=== PATIENT | male | born 1940 | race Caucasian/White ===

== ENCOUNTER → 2016-07-14 | Outpatient (CLI) | payer MEDICARE, MEDICAID ==
[~2016-07-14] MED LIST: CATHETER FLUSH 10 ML SYR IV PRN; FLUT1AER IH; FLUT9.9S NS; GADOBUTROL 7.5 MMOL/7.5 ML (GADAVIST) VIAL IV ONE; GUAI120016 PO; HEParin (CENTRAL IV FLUSH) 500 UNIT/5 ML SYR ONE; HYDR-3816 PO; LANS30CA PO; MAGN250T35 PO; MULT-178 PO; POLY119P5 PO; ROFL500T4 PO; RT-ALBUINH IH; UMEC1BLS IH
--- NOTE | 2016-07-14 14:44 | Diagnostic Imaging Report ---
PROCEDURE: MR imaging of the brain with and without contrast. TECHNIQUE: Multiplanar, multisequence MR imaging of the brain was performed with and without contrast. INDICATION: Headache, cervical cancer. 7 mL of Gadovist administered intravenously. FINDINGS: There is no diffusion restriction to suggest an acute infarct or diffusion abnormality. There is minimal periventricular white matter T2 hyperintense lesions seen with no associated post contrast enhancement. This is likely related to chronic microvascular ischemic changes. No enhancing nodule to suggest metastatic disease. No hydrocephalus. No extra-axial fluid collection is seen. The central vascular flow-voids appear grossly unremarkable. The brainstem and cerebellum appear unremarkable. The pituitary gland is normal in size. There is fluid signal seen in the mastoid air cells and a fluid level in the right maxillary sinus. There is mucosal thickening in the left maxillary sinus, in the ethmoidal air cells, and in the right frontal sinus. Small mucous retention cyst in the right sphenoidal sinus is seen. IMPRESSION: 1. No acute infarct or evidence of brain metastasis. 2. Sinus disease including an air-fluid level in the right maxillary sinus. Consider possibility of acute sinusitis. Report was stat faxed to office of Dr. Germaine Murry @ 2:43 PM/sherrie. Dictated by: Dictated on workstation # [id number]
--- NOTE | 2016-07-14 15:02 | Diagnostic Imaging Report ---
MUGA scan Technique: After the intravenous administration of 28.9 mCi of technetium 99m tagged red blood cells intravenously, images are obtained over the cardiac region in left lateral, anterior and BURKINAN and CALI views. Indication: Evaluate ejection fraction. Cardiotoxic chemotherapy for lung cancer FINDINGS: Area of interest around the left ventricle is drawn and the ejection fraction is estimated based on radiotracer activity at 55%. No prior studies are available for comparison. IMPRESSION: Ejection fraction is 55%. Dictated by: Dictated on workstation # [id number]
== END ==
LOC: RAD 13:19
PROVIDERS: ATTEND Internal Medicine Hematology & Oncology
DX: Z01.810 Encounter for preprocedural cardiovascular examination (principal); C34.90 Malignant neoplasm of unspecified part of unspecified bronchus or lung
CPT/HCPCS: 70553; 78472

== ENCOUNTER 2016-07-15 10:40 | Outpatient (CLI) | payer MEDICARE, MEDICAID ==
[~2016-07-15] VITALS: Ht 175.3 cm; Wt 71.7 kg
[2016-07-15 10:52] VITALS: BP 111/60
[2016-07-15] MEDS ORDERED: GUAI120016 PO (11:12)
[2016-07-15] MEDS ORDERED: POLY119P5 PO (11:12)
[2016-07-15] MEDS ORDERED: FLUT1AER IH (11:12)
[2016-07-15] MEDS ORDERED: HYDR-3816 PO (11:12)
[2016-07-15] MEDS ORDERED: MULT-178 PO (11:12)
[2016-07-15] MEDS ORDERED: ROFL500T4 PO (11:12)
[2016-07-15] MEDS ORDERED: LANS30CA PO (11:12)
[2016-07-15] MEDS ORDERED: UMEC1BLS IH (11:12)
[2016-07-15] MEDS ORDERED: RT-ALBUINH IH (11:12)
[2016-07-15] MEDS ORDERED: MAGN250T35 PO (11:12)
[2016-07-15] MEDS ORDERED: FLUT9.9S NS (11:12)
== END 2016-07-15 11:07 | disposition home or self-care (01) ==
LOC: PREOP 10:40
PROVIDERS: ATTEND Surgery Pediatric Surgery
DX: Z01.818 Encounter for other preprocedural examination (principal); Z11.2 Encounter for screening for other bacterial diseases; C34.90 Malignant neoplasm of unspecified part of unspecified bronchus or lung
CPT/HCPCS: 87081

== ENCOUNTER 2016-07-17 08:38 | Day surgery (SDC) | payer MEDICARE, MEDICAID ==
[~2016-07-17] VITALS: Ht 175.3 cm; Wt 71.7 kg
[~2016-07-17 08:38] MED LIST changes: -CATHETER FLUSH 10 ML SYR IV PRN; -GADOBUTROL 7.5 MMOL/7.5 ML (GADAVIST) VIAL IV ONE; -HEParin (CENTRAL IV FLUSH) 500 UNIT/5 ML SYR ONE
[2016-07-17] MEDS ORDERED: LACTATED RINGERS 1,000 ML IV PRN (09:02)
[2016-07-17] MEDS ORDERED: proPOfol 200 MG/20 ML (DIPRIVAN) VIAL IV ONE (09:10)
[2016-07-17] MEDS ORDERED: MIDAZOLAM 2 MG/2 ML (VERSED) VIAL ONE (09:10)
[2016-07-17 09:15] VITALS: BP 136/68
[2016-07-17] MEDS ORDERED: CATHETER FLUSH 10 ML SYR IV PRN (09:15)
[2016-07-17] MEDS ORDERED: RT-ALBUTEROL SULF 2.5 MG/3 ML PRE-MIX VIAL INH ONE (09:15)
[2016-07-17] MEDS ORDERED: CLINDAMYCIN 600 MG/50 ML IVPB 50 ML IV ONE (09:15)
--- NOTE | 2016-07-17 09:21 | Progress Note-Pre Operative ---
Pre-Operative Progress Note H&P Reviewed The H&P was reviewed, patient examined and no changes noted. Date H&P Reviewed: Jul 17, 2016 Time H&P Reviewed: 09:20 Pre-Operative Diagnosis: metastatic small cell lung cancer ARNULFO CARIAS MD Jul 17, 2016 9:21 am
[2016-07-17] MEDS ORDERED: LIDOCAINE 1% INJ 20 ML (XYLOCAINE) VIAL ONE (09:23)
[2016-07-17] MEDS ORDERED: HEParin (CENTRAL IV FLUSH) 500 UNIT/5 ML SYR ONE (09:23)
[2016-07-17] MEDS ORDERED: LIDOCAINE/EPI 1%-1:100,000 (XYLOCAINE) 20ML ONE (09:24)
[2016-07-17] MEDS ORDERED: ONDANSETRON 4 MG/2 ML (SDV) Z0FRAN IVP PRN ×2 (09:30→11:00)
[2016-07-17] MEDS ORDERED: HYDROcodone/APAP 5 MG/325 MG (LORTAB) TAB PO ONE (09:30)
[2016-07-17] MEDS ORDERED: morphine INJ 10 MG/ML 1ML (SYR OR VIAL) IVP PRN ×2 (09:30→11:00)
[2016-07-17] MEDS ORDERED: ACETAMINOPHEN 325 MG TABLET/CAPLET (TYLENOL) PO PRN (09:30)
--- NOTE | 2016-07-17 10:46 | Progress Note-Post Operative ---
Post-Operative Progess Note Surgeon (s)/Room Service Manager (s) Surgeon ARNULFO CARIAS MD Room Service Manager: none Pre-Operative Diagnosis metastatic small cell lung cancer Post-Operative Diagnosis same Post-Op Procedure Note Date of Procedure: Jul 17, 2016 Name of Procedure Performed: placement right subclavian central venous catheter under flouroscopy. Description of the Procedure: placement right subclavian central venous catheter under flouroscopy. Findings of the Procedure . Anesthesia Type MAC with local Estimated blood loss (mL): minimal Specimen(s) collected/removed none ARNULFO CARIAS MD Jul 17, 2016 10:46 am
--- NOTE | 2016-07-17 10:53 | Discharge Inst-Surgical ---
D/C Lap Instructions-ARETHA Follow Up PRN Activity as tolerated cath may be used at any time. Regular Diet Symptoms to Report: Fever over 101 degree F, Nausea/Vomiting Infection Signs and Symptoms to report: Increased redness, Foul odor of wound, Increased drainage Bathing instructions: May shower Operative Area Clean/Dry; Keep incision clean/dry If any problems/questions: Contact your physician or go to Emergency Room ARNULFO CARIAS MD Jul 17, 2016 10:53 am
[2016-07-17 11:00] VITALS: BP 121/59
--- NOTE | 2016-07-17 11:16 | Diagnostic Imaging Report ---
Portable upright radiograph of the chest. INDICATION: Post Groshong placement. The patient has history of lung cancer although no prior chest imaging are available. FINDINGS: There is a right subclavian port placed with the tip at the mid aorta, there is a 7.6 CM right suprahilar mass seen. The left lung is clear of focal infiltrates or obvious mass but demonstrates hyperinflation and background interstitial thickening as in the right lung compatible with COPD. Heart size is normal. No effusion and no pneumothorax. IMPRESSION: Large right suprahilar mass. Dictated by: Dictated on workstation # [id number]
[2016-07-17 11:30] VITALS: BP 125/64
[2016-07-17 12:00] VITALS: BP 123/58
[2016-07-17 12:20] VITALS: BP 123/58
--- NOTE | 2016-07-17 16:53 | Diagnostic Imaging Report ---
EXAM: Intraoperative view of the chest. INDICATION: Port placement. FINDINGS: Fluoroscopic time provided is 20 seconds. Port is projecting over the SVC level with a right suprahilar mass seen. IMPRESSION: Suprahilar mass. Port seen projecting over the SVC level. Dictated by: Dictated on workstation # [id number]
--- NOTE | 2016-07-20 11:38 | OPERATIVE REPORT ---
PROCEDURE PHYSICIAN: ARNULFO CARIAS DATE OF PROCEDURE: 07/17/2016 ATTENDING PRIMARY CARE PHYSICIAN: Dr. Villalba. PREOPERATIVE DIAGNOSIS: Metastatic non-small cell lung cancer. POSTOPERATIVE DIAGNOSIS: Metastatic non-small cell lung cancer. PROCEDURE: Placement left subclavian Groshong implantable catheter under fluoroscopy. SURGEON: Dr. Carias. ANESTHESIA: Monitored anesthesia care with local. ESTIMATED BLOOD LOSS: Minimal. FINDINGS: Catheter tip at right atrial/superior vena caval junction. DISPOSITION: The patient tolerated procedure well. Mr. Mann Ken is a 75-year-old male who is referred over to us for a Groshong catheter. This gentleman reports, approximately 2 weeks ago he was seen by his primary care physician where a chest x-ray was performed, which did show shadowing of the left lung. He also has had recurrent episodes bronchitis as well as pneumonia and does have a long previous smoking history. He then underwent a CT scan, which did show enlarged lymph nodes. He was then referred to [facility] where a bronchoscopy was performed, which did show small cell lung cancer. Further evaluation with a PET scan did show positive lymph nodes as well as a lesion on along the left adrenal gland consistent with metastatic small cell lung cancer. The patient was brought to the operating room, laid supine on the table. After adequate IV pain and sedative medications and monitored anesthesia care, the neck and chest were prepped and draped in standard surgical fashion. 1% lidocaine was then used to anesthetize the overlying skin in the right subclavian region. The right subclavian vein was then cannulated withdrawing of venous blood. The guidewire was then inserted under fluoroscopy. The cannulating needle removed and a skin incision using a 15 blade. The dilator and sheath were then placed over the guidewire under fluoroscopy. The dilator removed, as well as the guidewire. The Groshong implantable catheter was then placed through the sheath until the catheter tip was at the superior vena caval/right atrial junction. The sheath was then removed. The inner wire within the catheter was then removed. The catheter cut down to size and port placed onto the catheter. The skin incision was then extended laterally using a 15 blade. The right chest subcutaneous reservoir was then created. Subcutaneous tissue was opened using electrocautery until the plane between the subcutaneous tissue and anterior pectoral fascia was identified. A pocket was then created between the sling, using blunt dissection as well as electrocautery. The port was then placed into the chest reservoir. This was then sutured to the pectoralis fascia using interrupted 3-0 Vicryl sutures. The subcutaneous tissue was then reapproximated using 3-0 Vicryl interrupted sutures. Skin was closed using 4-0 Monocryl running subcuticular suture. The wound was then cleaned and covered Dermabond. The port was accessed and covered with drain sponge followed by OpSite. The patient tolerated the procedure well. We will get postprocedure chest x-ray. Once the placement is confirmed, the catheter may be used at any time. Job ID: [id number] Dictated Date: 07/17/2016 10:53:23 Beer Merchant Date: 07/20/2016 11:28:43 / fiona
== END 2016-07-17 12:20 | disposition home or self-care (01) ==
LOC: SDC 08:38
PROVIDERS: ATTEND Surgery Pediatric Surgery
DX: C34.92 Malignant neoplasm of unspecified part of left bronchus or lung (principal); C77.1 Secondary and unspecified malignant neoplasm of intrathoracic lymph nodes; Z87.891 Personal history of nicotine dependence
CPT/HCPCS: 71010; 94640; 94760

== ENCOUNTER 2016-08-25 15:07 | Outpatient (RCR) | payer OTHER, MEDICAID ==
[2016-07-13 13:15] LABS: BASOPHILS # (AUTO) 0.2 10^3/uL (0.0-0.1); BASOPHILS % (AUTO) 1 % (0-10); EOSINOPHILS # (AUTO) 0.1 10^3/uL (0.0-0.3); EOSINOPHILS % (AUTO) 1 % (0-10); LYMPHOCYTES # (AUTO) 0.7 X 10^3 (1.0-4.0); LYMPHOCYTES % (AUTO) 4 % (12-44); MEAN CORPUSCULAR HEMOGLOBIN 28 PG (25-34); MEAN CORPUSCULAR HGB CONC 30 G/DL (32-36); MEAN CORPUSCULAR VOLUME 92 FL (80-99); MEAN PLATELET VOLUME 8.2 FL (7.4-10.4); MONOCYTES # (AUTO) 0.4 X 10^3 (0.0-1.0); MONOCYTES % (AUTO) 2 % (0-12); NEUTROPHILS # (AUTO) 16.1 X 10^3 (1.8-7.8); NEUTROPHILS % (AUTO) 92 % (42-75); PLATELET COUNT 570 10^3/uL (130-400); RED BLOOD COUNT 3.73 10^6/uL (4.35-5.85); RED CELL DISTRIBUTION WIDTH 13.9 % (10.0-14.5); WHITE BLOOD COUNT 17.5 10^3/uL (4.3-11.0)
[2016-07-13 13:53] LABS: ALANINE AMINOTRANSFERASE 12 U/L (0-55); ALBUMIN 3.4 G/DL (3.2-4.5); ANION GAP 9 MMOL/L (5-14); ASPARTATE AMINO TRANSFERASE 12 U/L (5-34); BILIRUBIN,TOTAL 0.2 MG/DL (0.1-1.0); BLOOD UREA NITROGEN 22 MG/DL (7-18); BUN/CREATININE RATIO 25; CARBON DIOXIDE 29 MMOL/L (21-32); CHLORIDE 104 MMOL/L (98-107); CREATININE SERUM 0.89 MG/DL (0.60-1.30); GFR ESTIMATED > 60; GLUCOSE 127 MG/DL (70-105); POTASSIUM 4.6 MMOL/L (3.6-5.0); SODIUM 142 MMOL/L (135-145); TOTAL PROTEIN 6.2 G/DL (6.4-8.2)
[2016-08-12 11:50] LABS: BASOPHILS # (AUTO) 0.2 10^3/uL (0.0-0.1); BASOPHILS % (AUTO) 1 % (0-10); EOSINOPHILS # (AUTO) 0.2 10^3/uL (0.0-0.3); EOSINOPHILS % (AUTO) 1 % (0-10); LYMPHOCYTES # (AUTO) 2.3 X 10^3 (1.0-4.0); LYMPHOCYTES % (AUTO) 13 % (12-44); MEAN CORPUSCULAR HEMOGLOBIN 28 PG (25-34); MEAN CORPUSCULAR HGB CONC 30 G/DL (32-36); MEAN CORPUSCULAR VOLUME 92 FL (80-99); MEAN PLATELET VOLUME 8.7 FL (7.4-10.4); MONOCYTES # (AUTO) 1.7 X 10^3 (0.0-1.0); MONOCYTES % (AUTO) 10 % (0-12); NEUTROPHILS % (AUTO) 75 % (42-75); PLATELET COUNT 485 10^3/uL (130-400); RED BLOOD COUNT 3.23 10^6/uL (4.35-5.85); RED CELL DISTRIBUTION WIDTH 16.4 % (10.0-14.5); WHITE BLOOD COUNT 17.3 10^3/uL (4.3-11.0)
[2016-08-12 12:11] LABS: ALANINE AMINOTRANSFERASE 15 U/L (0-55); ALBUMIN 3.6 G/DL (3.2-4.5); ANION GAP 7 MMOL/L (5-14); ASPARTATE AMINO TRANSFERASE 25 U/L (5-34); BILIRUBIN,TOTAL 0.3 MG/DL (0.1-1.0); BLOOD UREA NITROGEN 21 MG/DL (7-18); BUN/CREATININE RATIO 27; CALCIUM 9.2 MG/DL (8.5-10.1); CARBON DIOXIDE 30 MMOL/L (21-32); CHLORIDE 104 MMOL/L (98-107); CREATININE SERUM 0.79 MG/DL (0.60-1.30); GFR ESTIMATED > 60; GLUCOSE 101 MG/DL (70-105); LACTATE DEHYDROGENASE 519 U/L (125-220); POTASSIUM 4.5 MMOL/L (3.6-5.0); SODIUM 141 MMOL/L (135-145); TOTAL PROTEIN 6.4 G/DL (6.4-8.2)
[2016-08-19 13:16] LABS: BASOPHILS # (AUTO) 0.4 10^3/uL (0.0-0.1); BASOPHILS % (AUTO) 2 % (0-10); EOSINOPHILS # (AUTO) 0.3 10^3/uL (0.0-0.3); EOSINOPHILS % (AUTO) 1 % (0-10); LYMPHOCYTES # (AUTO) 1.9 X 10^3 (1.0-4.0); LYMPHOCYTES % (AUTO) 9 % (12-44); MEAN CORPUSCULAR HEMOGLOBIN 27 PG (25-34); MEAN CORPUSCULAR HGB CONC 30 G/DL (32-36); MEAN CORPUSCULAR VOLUME 90 FL (80-99); MEAN PLATELET VOLUME 8.4 FL (7.4-10.4); MONOCYTES # (AUTO) 1.6 X 10^3 (0.0-1.0); MONOCYTES % (AUTO) 7 % (0-12); NEUTROPHILS # (AUTO) 17.6 X 10^3 (1.8-7.8); NEUTROPHILS % (AUTO) 81 % (42-75); PLATELET COUNT 813 10^3/uL (130-400); RED BLOOD COUNT 3.12 10^6/uL (4.35-5.85); RED CELL DISTRIBUTION WIDTH 16.5 % (10.0-14.5); WHITE BLOOD COUNT 21.7 10^3/uL (4.3-11.0)
[2016-08-19 13:40] LABS: ANION GAP 12 MMOL/L (5-14); BLOOD UREA NITROGEN 31 MG/DL (7-18); BUN/CREATININE RATIO 36; CALCIUM 9.7 MG/DL (8.5-10.1); CARBON DIOXIDE 29 MMOL/L (21-32); CHLORIDE 101 MMOL/L (98-107); CREATININE SERUM 0.85 MG/DL (0.60-1.30); GFR ESTIMATED > 60; GLUCOSE 90 MG/DL (70-105); MAGNESIUM 2.2 MG/DL (1.8-2.4); POTASSIUM 4.4 MMOL/L (3.6-5.0); SODIUM 142 MMOL/L (135-145)
[~2016-08-25] VITALS: Ht 167.6 cm; Wt 68.5 kg
[~2016-08-25 15:07] MED LIST changes: +ACETAMINOPHEN 500 MG TAB (TYLENOL) CANCER CTR ONE; -ALBU18HF2 INH; -ALBU2.5V4 NEB; +CARBOPLATIN 400 MG in D5W 50 ML IV(CANCER CTR) 50 ML IV SCH; +CARBOPLATIN IV SCH; +D5W IV SCH; -DOCU-143 PO; +ETOPOSIDE 150 MG in NORMAL SALINE (CANCER CENTER) 500 ML IV SCH; +ETOPOSIDE IV SCH; -FAMO20TA5 PO; +FAMOTIDINE 20MG/2ML IV (CANCER CTR) IV SCH; -FLUT16SP22 NS; +FOSAPREPITANT 150 MG/NS 150 MG IVPB (CANCER CTR) IV PRN; -LORA0.5T PO; +LORazepam 0.5 MG (ATIVAN) TABLET CANCER CTR PO PRN; -MAGN400T6 PO; -MV-M1TAB38 PO; +NORMAL SALINE IV SCH; +NS IV 1000 ML (CANCER CTR) 1,000 ML ONE; +NS IV 500 ML (CANCER CENTER) IV SCH; -OMEP40CA36 PO; -ONDA8TAB6 PO; +ONDANSETRON MDV (CANCER CENTER 16 MG, DEXAMETHASONE PF INJ (CANCER C 12 MG in NS (IVPB)... IV SCH; +PALONOSETRON 0.25 MG, DEXAMETHASONE 10 MG/NS 50 ML IVPB IV PRN; +PALONOSETRON HCL 0.25 MG, DEXAMETHASONE PF INJ (CANCER C 12 MG in NS (IVPB) CANCER CENT... IV PRN; +PEGFILGRASTIM 6 MG/0.6 ML KIT SQ SCH; +PEGFILGRASTIM 6 MG/0.6ML NEULASTA SC SCH; -UMEC62.5 INH
[2016-08-25 15:29] LABS: BASOPHILS # (AUTO) 0.1 10^3/uL (0.0-0.1); BASOPHILS % (AUTO) 1 % (0-10); EOSINOPHILS # (AUTO) 1.4 10^3/uL (0.0-0.3); EOSINOPHILS % (AUTO) 8 % (0-10); LYMPHOCYTES # (AUTO) 1.4 X 10^3 (1.0-4.0); LYMPHOCYTES % (AUTO) 8 % (12-44); MEAN CORPUSCULAR HEMOGLOBIN 27 PG (25-34); MEAN CORPUSCULAR HGB CONC 31 G/DL (32-36); MEAN CORPUSCULAR VOLUME 89 FL (80-99); MEAN PLATELET VOLUME 8.4 FL (7.4-10.4); MONOCYTES # (AUTO) 0.7 X 10^3 (0.0-1.0); MONOCYTES % (AUTO) 4 % (0-12); NEUTROPHILS # (AUTO) 13.6 X 10^3 (1.8-7.8); NEUTROPHILS % (AUTO) 80 % (42-75); PLATELET COUNT 613 10^3/uL (130-400); RED BLOOD COUNT 3.38 10^6/uL (4.35-5.85); RED CELL DISTRIBUTION WIDTH 16.1 % (10.0-14.5); WHITE BLOOD COUNT 17.2 10^3/uL (4.3-11.0)
[2016-08-25 16:13] LABS: ALANINE AMINOTRANSFERASE 24 U/L (0-55); ALBUMIN 3.1 G/DL (3.2-4.5); ANION GAP 10 MMOL/L (5-14); ASPARTATE AMINO TRANSFERASE 23 U/L (5-34); BILIRUBIN,TOTAL 0.4 MG/DL (0.1-1.0); BLOOD UREA NITROGEN 21 MG/DL (7-18); BUN/CREATININE RATIO 28; CALCIUM 9.1 MG/DL (8.5-10.1); CARBON DIOXIDE 28 MMOL/L (21-32); CHLORIDE 100 MMOL/L (98-107); CREATININE SERUM 0.75 MG/DL (0.60-1.30); GFR ESTIMATED > 60; GLUCOSE 102 MG/DL (70-105); MAGNESIUM 1.9 MG/DL (1.8-2.4); POTASSIUM 4.8 MMOL/L (3.6-5.0); SODIUM 138 MMOL/L (135-145); TOTAL PROTEIN 6.2 G/DL (6.4-8.2)
[2016-08-27] MEDS ORDERED: ALBU2.5V4 NEB (11:58)
[2016-08-27] MEDS ORDERED: ONDA8TAB6 PO (11:58)
[2016-08-27] MEDS ORDERED: LORA0.5T PO (11:58)
[2016-08-27] MEDS ORDERED: FAMO20TA5 PO (11:58)
[2016-08-27] MEDS ORDERED: UMEC62.5 INH (11:58)
[2016-08-27] MEDS ORDERED: OMEP40CA36 PO (11:58)
[2016-08-27] MEDS ORDERED: DOCU-143 PO (11:58)
[2016-08-27] MEDS ORDERED: FLUT16SP22 NS (11:58)
[2016-08-27] MEDS ORDERED: ALBU18HF2 INH (11:58)
[2016-08-27] MEDS ORDERED: MV-M1TAB38 PO (12:06)
[2016-08-27] MEDS ORDERED: MAGN400T6 PO (12:06)
== END 2016-10-11 | disposition home or self-care (01) ==
LOC: ONC 15:07
PROVIDERS: ATTEND Internal Medicine Hematology & Oncology
DX: Z51.11 Encounter for antineoplastic chemotherapy (principal); C34.2 Malignant neoplasm of middle lobe, bronchus or lung; J44.9 Chronic obstructive pulmonary disease, unspecified; K21.9 Gastro-esophageal reflux disease without esophagitis; I10 Essential (primary) hypertension; H35.30 Unspecified macular degeneration; M48.00 Spinal stenosis, site unspecified; Z79.899 Other long term (current) drug therapy
CPT/HCPCS: 36415; 36430; 36591; 80048; 80053; 83615; 83735; 85025; 86850; 86900; 86901; 86920; 96360; 96361; 96367; 96375; 96413; 96417; 99213; 99214

== ENCOUNTER → 2016-08-25 | Outpatient (CLI) | payer MEDICARE, MEDICAID ==
[~2016-08-25] MED LIST changes: +ALBU18HF2 INH; +ALBU2.5V4 NEB; +DOCU-143 PO; +FAMO20TA5 PO; +FLUT16SP22 NS; +LORA0.5T PO; +MAGN400T6 PO; +MV-M1TAB38 PO; +OMEP40CA36 PO; +ONDA8TAB6 PO; +UMEC62.5 INH
--- NOTE | 2016-08-25 16:49 | Diagnostic Imaging Report ---
EXAMINATION: Supine view of the abdomen. INDICATION: Abdominal pain and fullness. History of small cell carcinoma. FINDINGS: There are large amounts of fecal material in the rectum and colon with slight gaseous distention of proximal colonic and small bowel loops. There are no significantly dilated small bowel loops. No definite soft tissue mass. IMPRESSION: Findings are suggestive of constipation and mild fecal impaction. Dictated by: Dictated on workstation # [id number]
== END ==
LOC: RAD 16:17
PROVIDERS: ATTEND Internal Medicine Hematology & Oncology
DX: R10.9 Unspecified abdominal pain (principal)
CPT/HCPCS: 74000

== ENCOUNTER 2016-08-27 09:23 | Inpatient (IN) | payer MEDICARE, MEDICAID ==
[2016-08-27] VITALS (12 sets, daily range): BP systolic 96–133; BP diastolic 56–87
[~2016-08-27] VITALS: Ht 172.7 cm; Wt 72.2 kg
[~2016-08-27 09:23] MED LIST changes: -ACETAMINOPHEN 500 MG TAB (TYLENOL) CANCER CTR ONE; -CARBOPLATIN 400 MG in D5W 50 ML IV(CANCER CTR) 50 ML IV SCH; -CARBOPLATIN IV SCH; -D5W IV SCH; -ETOPOSIDE 150 MG in NORMAL SALINE (CANCER CENTER) 500 ML IV SCH; -ETOPOSIDE IV SCH; -FAMOTIDINE 20MG/2ML IV (CANCER CTR) IV SCH; -FOSAPREPITANT 150 MG/NS 150 MG IVPB (CANCER CTR) IV PRN; -LORazepam 0.5 MG (ATIVAN) TABLET CANCER CTR PO PRN; -NORMAL SALINE IV SCH; -NS IV 1000 ML (CANCER CTR) 1,000 ML ONE; -NS IV 500 ML (CANCER CENTER) IV SCH; -ONDANSETRON MDV (CANCER CENTER 16 MG, DEXAMETHASONE PF INJ (CANCER C 12 MG in NS (IVPB)... IV SCH; -PALONOSETRON 0.25 MG, DEXAMETHASONE 10 MG/NS 50 ML IVPB IV PRN; -PALONOSETRON HCL 0.25 MG, DEXAMETHASONE PF INJ (CANCER C 12 MG in NS (IVPB) CANCER CENT... IV PRN; -PEGFILGRASTIM 6 MG/0.6 ML KIT SQ SCH; -PEGFILGRASTIM 6 MG/0.6ML NEULASTA SC SCH
[2016-08-27] MEDS ORDERED: ACETAMINOPHEN 500 MG TAB (TYLENOL) PO PRN (10:30)
[2016-08-27] MEDS ORDERED: IBUPROFEN TABLET 200 MG TAB PO PRN (10:30)
[2016-08-27] MEDS ORDERED: ONDANSETRON 4 MG/2 ML (SDV) Z0FRAN IVP PRN (10:30)
[2016-08-27 11:28] LABS: MEAN PLATELET VOLUME 8.5 FL (7.4-10.4); RED BLOOD COUNT 2.99 10^6/uL (4.35-5.85)
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
[2016-08-27] MEDS ORDERED: PIPERACILLIN/TAZOBACTAM 4.5 GM/NS 100 ML IV NR ×2 (11:30)
[2016-08-27] MEDS ORDERED: RT-ALBUTEROL/IPRATROPIUM 3 ML (DUONEB) VIAL INH PRN (11:30)
[2016-08-27] MEDS: NS IV 1000 ML 1,000 ML IV SCH (11:47)
[2016-08-27 11:50] LABS: ALANINE AMINOTRANSFERASE 26 U/L (0-55); ANION GAP 8 MMOL/L (5-14); ASPARTATE AMINO TRANSFERASE 25 U/L (5-34); BILIRUBIN,TOTAL 0.4 MG/DL (0.1-1.0); BLOOD UREA NITROGEN 15 MG/DL (7-18); BUN/CREATININE RATIO 22; CALCIUM 8.6 MG/DL (8.5-10.1); CARBON DIOXIDE 29 MMOL/L (21-32); CHLORIDE 102 MMOL/L (98-107); CREATININE SERUM 0.67 MG/DL (0.60-1.30); GFR ESTIMATED > 60; GLUCOSE 111 MG/DL (70-105); POTASSIUM 4.7 MMOL/L (3.6-5.0); SODIUM 139 MMOL/L (135-145); TOTAL PROTEIN 5.8 G/DL (6.4-8.2)
[2016-08-27] MEDS ORDERED: LORA0.5T PO (11:58)
[2016-08-27] MEDS ORDERED: ALBU18HF2 INH (11:58)
[2016-08-27] MEDS ORDERED: FAMO20TA5 PO (11:58)
[2016-08-27] MEDS ORDERED: OMEP40CA36 PO (11:58)
[2016-08-27] MEDS ORDERED: UMEC62.5 INH (11:58)
[2016-08-27] MEDS ORDERED: ALBU2.5V4 NEB (11:58)
[2016-08-27] MEDS ORDERED: ONDA8TAB6 PO (11:58)
[2016-08-27] MEDS ORDERED: FLUT16SP22 NS (11:58)
[2016-08-27] MEDS ORDERED: DOCU-143 PO (11:58)
[2016-08-27 12:00] LABS: ABG BASE EXCESS 4.6 MMOL/L (-2.5-2.5); ABG HCO3 29 MMOL/L (23-27); ABG OXYGEN SATURATION 95 % (94-100); ABG PCO2 49 MMHG (35-45); ABG PH 7.39 (7.37-7.43); ABG PO2 69 MMHG (79-93); ABG TCO2 30.9 MMOL/L (21.0-31.0)
[2016-08-27 12:01] LABS: ALLENS TEST YES-POS; PATIENT TEMP 97.9
[2016-08-27] MEDS ORDERED: MAGN400T6 PO (12:06)
[2016-08-27] MEDS ORDERED: MV-M1TAB38 PO (12:06)
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
[2016-08-27] MEDS: RT-ALBUTEROL/IPRATROPIUM 3 ML (DUONEB) VIAL INH SCH ×3 (14:07→21:34)
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
[2016-08-27] MEDS: HYDROcodone/APAP 5 MG/325 MG (LORTAB) TAB PO PRN (17:41)
[2016-08-27] MEDS: PIPERACILLIN SODIUM/TAZOBACTAM 4.5 GM in NS (IVPB) 100 ML IV SCH (17:45)
--- NOTE | 2016-08-27 18:12 | Diagnostic Imaging Report ---
EXAMINATION: PA and lateral views of the chest. INDICATION: Mass. COMPARISON: 07/17/16. FINDINGS: There is a right suprahilar mass. There is a new large opacity in the right suprahilar region presumably related to pneumonia. There is a moderate right pleural effusion with right basilar atelectasis. The left lung is clear. Background COPD changes, however, are seen. The heart size is normal. Infusion port is noted through the left subclavian vein with the tip at the SVC level. IMPRESSION: Large opacity adjacent to the right suprahilar mass is probably related to superimposed pneumonia. There is a moderate right pleural effusion with associated basilar atelectasis. Dictated by: Dictated on workstation # [id number]
[2016-08-27] MEDS: guaiFENesin/CODEINE (ROBITUSSIN AC) 10ML UDC PO PRN (20:15)
[2016-08-28] VITALS: BP 106/57
[2016-08-28] MEDS: guaiFENesin/CODEINE (ROBITUSSIN AC) 10ML UDC PO PRN ×2 (00:41→11:03)
[2016-08-28] MEDS: NS IV 1000 ML 1,000 ML IV SCH ×4 (01:39→20:57)
[2016-08-28] MEDS: PIPERACILLIN SODIUM/TAZOBACTAM 4.5 GM in NS (IVPB) 100 ML IV SCH ×3 (01:40→16:43)
[2016-08-28] MEDS: RT-ALBUTEROL/IPRATROPIUM 3 ML (DUONEB) VIAL INH SCH ×6 (02:11→21:57)
[2016-08-28 04:10] VITALS: BP 110/60
[2016-08-28] MEDS: HYDROcodone/APAP 5 MG/325 MG (LORTAB) TAB PO PRN ×2 (07:14→19:48)
--- NOTE | 2016-08-28 07:20 | Pulmonary Progress Note ---
Subjective Subjective/Events-last exam No complications noted. Exam Exam Vital Signs Date Time Temp Pulse Resp B/P (MAP) Pulse Ox O2 Delivery O2 Flow Rate FiO2 08/28/16 04:10 98.0 82 18 110/60 96 4.00 08/28/16 02:11 98 5.00 08/28/16 00:00 97.4 94 19 106/57 96 4.00 08/27/16 21:34 98 4.00 08/27/16 19:50 98.4 101 24 120/56 96 4.00 08/27/16 18:50 94 4.00 08/27/16 17:30 97.6 92 18 117/65 95 4.00 08/27/16 17:30 95 5.00 08/27/16 16:00 93 13 112/63 96 08/27/16 16:00 97.6 5.00 08/27/16 16:00 95 40 08/27/16 15:00 92 18 96/87 92 08/27/16 14:08 93 18 96 50.00 08/27/16 14:00 89 7 108/70 95 08/27/16 13:45 93 08/27/16 13:00 91 18 111/57 95 08/27/16 12:52 93 15 95 50.00 08/27/16 12:10 95 40 08/27/16 12:07 96 08/27/16 12:00 93 14 109/64 93 08/27/16 11:45 111/62 08/27/16 11:22 94 15 94 40.00 08/27/16 10:57 98.4 92 16 133/69 96 40.00 08/27/16 10:55 96 40 I & O 08/28/16 07:00 Intake Total 650 ml Output Total 1350 ml Balance -700 ml General Appearance: No Apparent Distress, WD/WN, Chronically ill, Mild Distress (due to wheezing on biPAP) HEENT: PERRL/EOMI, Normal ENT Inspection, Pharynx Normal Neck: Full Range of Motion, Normal Inspection, Non Tender, Supple, Carotid Bruit Respiratory: Chest Non Tender, No Accessory Muscle Use, No Respiratory Distress , Crackles, Decreased Breath Sounds, Wheezing Cardiovascular: Regular Rate, Rhythm, No Edema, No Gallop, No JVD, No Murmur, Normal Peripheral Pulses Capillary Refill: Less Than 3 Seconds Gastrointestinal: normal bowel sounds, non tender, soft Extremity: Normal Capillary Refill, Normal Inspection, Normal Range of Motion, Non Tender, No Calf Tenderness, No Pedal Edema Neurologic/Psychiatric: Alert, Oriented x3, No Motor/Sensory Deficits, Normal Mood/Affect Skin: Normal Color, Warm/Dry Lymphatic: No Adenopathy Results Lab Laboratory Tests 08/27/16 11:19 Assessment/Plan Assessment/Plan COPDAE - - CXR shows pna -continue Abx -SVNS, steroids Extensive small cell lung cancer -not responding to chemo chronic constipation I agree with hospice education/care. I also agree with DNR status. 232 Clinical Quality Measures DVT/VTE Risk/Contraindication: Risk Factor Score Per Nursin RFS Level Per Nursing on Admit: 2=Moderate FLOR POON DO August 28, 2016 07:20
[2016-08-28 07:51] VITALS: BP 125/74
[2016-08-28] MEDS: fentaNYL INJECTION 100 MCG/2 ML AMP IVP PRN (11:03)
[2016-08-28 11:22] VITALS: BP 134/71
--- NOTE | 2016-08-28 11:35 | Progress Note-Hospitalist ---
Progress Note HPI/CC on Admission CC: Dyspnea HPI: This is a 75yoWM clinic patient of Dr Morton with known hx of smal cell lung cancer that presents as a direct admit from [facility] ER for higher level of care. He was treated for pneumonia 2 weeks ago and presented to the ER w/increased SOB and found to have additional infiltrate where the lung mass is and findings c/w AECOPD. Currently when I examined him he was tolerating the biPAP well and Dr Torrez has been consulted. Dr morton visited with him and obtained the DNR order which is reasonable considering his advanced COPD and lung cancer status. Progress Notes/Assess & Plan Date Seen 08/28/16 Admission Dx/Process Assessment: Respiratory failure requiring biPAP Severe COPD w/exacerbation along with small cell lung cancer managed by Dr Morton Smoker/Former smoker Diagonsis/Assessment & Plan Patient feeling about the same but now off noninvasive ventilator support Transferred to the floor without complication Now a DO NOT RESUSCITATE and appears to be more hospice candidate Still having constipation and feels very bloated so will start aggressive regimen for that No significant pain elsewhere No fever, vital signs stable, pleasant, improved, chronically ill, pale Regular rate and rhythm, clear to auscultation bilaterally but diminished breath sounds all de paz No edema Assessment: Respiratory failure requiring biPAP now improved and off biPAP Severe COPD w/exacerbation along with small cell lung cancer managed by Dr Morton Smoker/Former smoker Severe constipation Anemia of cancer Plan: IV abx Nebs BM regimen aggressive Dr Morton and Dr Torrez consultations are appreciated Pain meds DNR poor prognosis needs Hospice MADHAVI PALACIO DO August 28, 2016 11:35
[2016-08-28] MEDS ORDERED: MAGNESIUM CITRATE 300 ML BTL PO ONE (11:45)
[2016-08-28] MEDS: SENNA W/DOCUSATE (SENOKOT S) TABLET PO SCH ×2 (11:48→20:57)
[2016-08-28] MEDS: LACTULOSE SYRUP 10GM/15ML (ENULOSE) 30ML UDC PO SCH ×2 (11:48→20:57)
[2016-08-28 16:00] VITALS: BP 118/64
[2016-08-28 20:00] VITALS: BP 134/74
[2016-08-29] VITALS (10 sets, daily range): BP systolic 116–145; BP diastolic 60–73
[2016-08-29] MEDS: PIPERACILLIN SODIUM/TAZOBACTAM 4.5 GM in NS (IVPB) 100 ML IV SCH ×3 (01:10→17:16)
[2016-08-29] MEDS: RT-ALBUTEROL/IPRATROPIUM 3 ML (DUONEB) VIAL INH SCH ×6 (02:00→22:33)
[2016-08-29] MEDS: guaiFENesin/CODEINE (ROBITUSSIN AC) 10ML UDC PO PRN ×2 (03:43→22:56)
[2016-08-29] MEDS: HYDROcodone/APAP 5 MG/325 MG (LORTAB) TAB PO PRN ×4 (03:43→22:42)
[2016-08-29] MEDS: NS IV 1000 ML 1,000 ML IV SCH (05:38)
[2016-08-29 05:52] LABS: BASOPHILS # (AUTO) 0.1 10^3/uL (0.0-0.1); BASOPHILS % (AUTO) 1 % (0-10); EOSINOPHILS # (AUTO) 1.3 10^3/uL (0.0-0.3); EOSINOPHILS % (AUTO) 13 % (0-10); LYMPHOCYTES # (AUTO) 1.2 X 10^3 (1.0-4.0); LYMPHOCYTES % (AUTO) 11 % (12-44); MEAN CORPUSCULAR HEMOGLOBIN 27 PG (25-34); MEAN CORPUSCULAR HGB CONC 30 G/DL (32-36); MEAN CORPUSCULAR VOLUME 90 FL (80-99); MEAN PLATELET VOLUME 8.2 FL (7.4-10.4); MONOCYTES # (AUTO) 0.7 X 10^3 (0.0-1.0); MONOCYTES % (AUTO) 7 % (0-12); NEUTROPHILS # (AUTO) 7.1 X 10^3 (1.8-7.8); NEUTROPHILS % (AUTO) 68 % (42-75); PLATELET COUNT 384 10^3/uL (130-400); RED BLOOD COUNT 2.92 10^6/uL (4.35-5.85); WHITE BLOOD COUNT 10.4 10^3/uL (4.3-11.0)
[2016-08-29 06:39] LABS: ALANINE AMINOTRANSFERASE 27 U/L (0-55); ALBUMIN 2.9 G/DL (3.2-4.5); ANION GAP 12 MMOL/L (5-14); ASPARTATE AMINO TRANSFERASE 27 U/L (5-34); BILIRUBIN,TOTAL 0.3 MG/DL (0.1-1.0); BLOOD UREA NITROGEN 10 MG/DL (7-18); BUN/CREATININE RATIO 15; CALCIUM 8.5 MG/DL (8.5-10.1); CARBON DIOXIDE 24 MMOL/L (21-32); CHLORIDE 105 MMOL/L (98-107); CREATININE SERUM 0.67 MG/DL (0.60-1.30); GFR ESTIMATED > 60; GLUCOSE 86 MG/DL (70-105); POTASSIUM 4.2 MMOL/L (3.6-5.0); SODIUM 141 MMOL/L (135-145); TOTAL PROTEIN 5.3 G/DL (6.4-8.2)
[2016-08-29] MEDS: LACTULOSE SYRUP 10GM/15ML (ENULOSE) 30ML UDC PO SCH ×3 (08:46→20:09)
[2016-08-29] MEDS: SENNA W/DOCUSATE (SENOKOT S) TABLET PO SCH ×2 (08:46→20:08)
--- NOTE | 2016-08-29 09:33 | Progress Note-Standard ---
Standard Progress Note Progress Notes/Assess & Plan Progress/Assessment & Plan 75-year-old male with the significant COPD and oxygen dependence. Recent diagnosis of extensive stage small cell lung cancer and status post chemotherapy with carboplatinum and etoposide regimen 2 cycles with the second cycle stopped after 2 days. Patient admitted with increased shortness of breath and constipation. On treatment for acute exacerbation of COPD with probable pneumonia. Constipation relieved with laxatives. Today patient is complaining of significant shortness of breath. Bronchodilators help for a short while. Vital Sign - Last 12Hours Date Time Temp Pulse Resp B/P (MAP) Pulse Ox O2 Delivery O2 Flow Rate FiO2 08/29/16 08:00 96.5 92 20 145/73 94 4.00 08/27/16 16:00 40 Physical examination showed an elderly male, awake and oriented, in moderate respiratory distress. No JVD. No lymphadenopathy palpable. Lungs with significantly diminished breath sounds bilaterally. No wheezes or rales heard. Cardiovascular examination was regular in rate and rhythm. Borderline tachycardic. Extremities with slight edema. Laboratory Tests 08/29/16 05:41 A/P: 1. Acute exacerbation of COPD. Continue current management. 2. Worsening anemia, probably of chronic disease and chemotherapy. We will type and cross and transfuse 2 units of packed red blood cells because of his respiratory status. Recheck CBC tomorrow. 3. Extensive stage small cell lung cancer, status post palliative chemotherapy with carboplatinum and etoposide regimen 2 cycles. Chest x-ray with probable worsening. Patient may need restaging CTs to confirm this and if progressive disease, either second line chemotherapy or best supportive care. 4. Patient is DO NOT RESUSCITATE. Continue. GRUPO MEJIA August 29, 2016 09:33
--- NOTE | 2016-08-29 10:12 | Progress Note-Hospitalist ---
Subjective HPI/CC On Admission CC: Dyspnea HPI: This is a 75yoWM clinic patient of Dr Morton with known hx of smal cell lung cancer that presents as a direct admit from [facility] ER for higher level of care. He was treated for pneumonia 2 weeks ago and presented to the ER w/increased SOB and found to have additional infiltrate where the lung mass is and findings c/w AECOPD. Currently when I examined him he was tolerating the biPAP well and Dr Torrez has been consulted. Dr morton visited with him and obtained the DNR order which is reasonable considering his advanced COPD and lung cancer status. Date Seen 08/29/16 Subjective/Events-last exam Pt reports still feeling poorly with persistent coughing. He has been unable to produce any sputum though. He reports baseline oxygen of 2lpm at home but still on 3-4lpm here. Also feels "puffy" with lower extremity and hand swelling. Objective Exam Vital Signs Vital Sign - Last 12Hours 08/27/16 08/27/16 10:55 10:57 Temp 98.4 Pulse 92 Resp 16 B/P (MAP) 133/69 Pulse Ox 96 O2 Flow Rate 40.00 FiO2 40 Capillary Refill : Less Than 3 Seconds General Appearance: No Apparent Distress, Chronically ill Respiratory: Rhonci, Other (on oxygen via NC) Cardiovascular: Regular Rate, Rhythm, No Murmur, Normal Peripheral Pulses Gastrointestinal: Normal Bowel Sounds, Non Tender, Soft Extremity: Pedal Edema Neurologic/Psychiatric: Alert, Oriented x3 Results/Procedures Lab Laboratory Tests 08/29/16 05:41 Assessment/Plan Assessment and Plan Assess & Plan/Chief Complaint Assessment: Acute on Chronic respiratory failure, Acute COPD exacerbation (likely) vs PNA - Pulm consulted, appreciate recs - Continue on IV Zosyn for known given concerning of underlying pneumonia (? postobstructive) - Sputum culture ordered - No signs of sepsis - Added mucomyst and Mucinex - Continue nebulizers Anemia of cancer, stable - 7.9 from 8.0 yesterday - 2upRBCs ordered per Dr Matute - Will follow with lasix given edema Lower extremity edema - IV lasix - DC fluids - Monitor I/Os Constipation - Cont bowel regimen Dispo: Continue admission for IV abx, blood transfusion. Poor residential prognosis. Would benefit from hospice. MD LIONEL Andre KATELYN M MD August 29, 2016 10:12
[2016-08-29] MEDS ORDERED: FUROSEMIDE 40 MG/4 ML INJ (LASIX) IVP NR (10:15)
[2016-08-29] MEDS ORDERED: diphenhydrAMINE 25 MG TAB (BENADRYL) PO ONE (11:30)
[2016-08-29] MEDS ORDERED: ACETAMINOPHEN 500 MG TAB (TYLENOL) PO ONE (11:30)
[2016-08-29] MEDS: aCETylcysteine 20% (MUCOMYST) 30ML SOLN VIAL INH SCH ×3 (14:14→22:33)
[2016-08-29] MEDS: guaiFENesin (MUCINEX) 600 MG TAB PO SCH (20:08)
[2016-08-29] MEDS: ALPRAZolam 0.25 MG (XANAX) TAB PO PRN (22:56)
[2016-08-30] VITALS: BP 133/75
[2016-08-30] MEDS: PIPERACILLIN SODIUM/TAZOBACTAM 4.5 GM in NS (IVPB) 100 ML IV SCH ×3 (01:09→17:30)
[2016-08-30] MEDS: RT-ALBUTEROL/IPRATROPIUM 3 ML (DUONEB) VIAL INH SCH ×6 (02:10→22:08)
[2016-08-30 05:26] LABS: BASOPHILS # (AUTO) 0.1 10^3/uL (0.0-0.1); BASOPHILS % (AUTO) 1 % (0-10); EOSINOPHILS # (AUTO) 1.5 10^3/uL (0.0-0.3); EOSINOPHILS % (AUTO) 14 % (0-10); LYMPHOCYTES # (AUTO) 1.3 X 10^3 (1.0-4.0); LYMPHOCYTES % (AUTO) 12 % (12-44); MEAN CORPUSCULAR HEMOGLOBIN 28 PG (25-34); MEAN CORPUSCULAR HGB CONC 31 G/DL (32-36); MEAN CORPUSCULAR VOLUME 89 FL (80-99); MEAN PLATELET VOLUME 8.2 FL (7.4-10.4); MONOCYTES # (AUTO) 0.7 X 10^3 (0.0-1.0); MONOCYTES % (AUTO) 7 % (0-12); NEUTROPHILS # (AUTO) 7.4 X 10^3 (1.8-7.8); NEUTROPHILS % (AUTO) 67 % (42-75); PLATELET COUNT 345 10^3/uL (130-400); RED BLOOD COUNT 3.74 10^6/uL (4.35-5.85); RED CELL DISTRIBUTION WIDTH 16.1 % (10.0-14.5)
[2016-08-30] MEDS: aCETylcysteine 20% (MUCOMYST) 30ML SOLN VIAL INH SCH ×3 (07:23→22:06)
[2016-08-30] MEDS: HYDROcodone/APAP 5 MG/325 MG (LORTAB) TAB PO PRN ×2 (07:42→17:30)
[2016-08-30] MEDS: guaiFENesin (MUCINEX) 600 MG TAB PO SCH ×2 (07:42→21:21)
[2016-08-30] MEDS: LACTULOSE SYRUP 10GM/15ML (ENULOSE) 30ML UDC PO SCH ×2 (07:43→21:18)
[2016-08-30] MEDS: SENNA W/DOCUSATE (SENOKOT S) TABLET PO SCH ×2 (07:44→21:18)
[2016-08-30 08:00] VITALS: BP 142/71
[2016-08-30] MEDS ORDERED: FUROSEMIDE 40 MG/4 ML INJ (LASIX) IVP ONE (12:15)
--- NOTE | 2016-08-30 12:15 | Progress Note-Hospitalist ---
Subjective HPI/CC On Admission CC: Dyspnea HPI: This is a 75yoWM clinic patient of Dr Morton with known hx of smal cell lung cancer that presents as a direct admit from [facility] ER for higher level of care. He was treated for pneumonia 2 weeks ago and presented to the ER w/increased SOB and found to have additional infiltrate where the lung mass is and findings c/w AECOPD. Currently when I examined him he was tolerating the biPAP well and Dr Torrez has been consulted. Dr morton visited with him and obtained the DNR order which is reasonable considering his advanced COPD and lung cancer status. Date Seen 08/30/16 Subjective/Events-last exam Reports feeling mildly better but even minimal movement causes significant shortness of breath. He had just sat up to urinate during my exam and felt veyr short of breath with that alone. He states he lives with his ex- but she is unable to care for him. He is agreeable at this time to placement. Objective Exam Vital Signs Vital Sign - Last 12Hours 08/27/16 08/27/16 10:55 10:57 Temp 98.4 Pulse 92 Resp 16 B/P (MAP) 133/69 Pulse Ox 96 O2 Flow Rate 40.00 FiO2 40 Capillary Refill : Less Than 3 Seconds General Appearance: No Apparent Distress, Chronically ill Respiratory: Crackles (inspiratory), Wheezing (diffuse expiratory) Cardiovascular: Regular Rate, Rhythm, Normal Peripheral Pulses Gastrointestinal: Normal Bowel Sounds, Non Tender, Soft Extremity: No Calf Tenderness, Swelling (2+ to ankles) Neurologic/Psychiatric: Alert, Oriented x3 Results/Procedures Lab Laboratory Tests 08/30/16 05:15 Assessment/Plan Assessment and Plan Assess & Plan/Chief Complaint Assessment: Acute on Chronic respiratory failure, Acute COPD exacerbation (likely) vs PNA Small cell lung cancer status post palliative chemotherapy - Pulm consulted, appreciate recs - Continue on IV Zosyn for now given concern of underlying pneumonia (? postobstructive) - Sputum culture ordered - Continue mucomyst and Mucinex - Continue DuoNebs Lower extremity edema - Will repeat IV lasix today for goal net negative i/os Anemia of cancer, stable- - 2upRBCs on 08/29/16 with appropriate rise in hgb Constipation - Cont bowel regimen Dispo: Continue admission for IV abx. Poor long-term prognosis. Would benefit from hospice but agreeable to SNF at this time. MD LIONEL Andre KATELYN M MD August 30, 2016 12:15
[2016-08-30 16:01] VITALS: BP 132/69
[2016-08-30] MEDS: guaiFENesin/CODEINE (ROBITUSSIN AC) 10ML UDC PO PRN (21:18)
[2016-08-31 00:16] VITALS: BP 115/58
[2016-08-31] MEDS: PIPERACILLIN SODIUM/TAZOBACTAM 4.5 GM in NS (IVPB) 100 ML IV SCH ×3 (01:32→17:58)
[2016-08-31] MEDS: fentaNYL INJECTION 100 MCG/2 ML AMP IVP PRN (01:36)
[2016-08-31] MEDS: RT-ALBUTEROL/IPRATROPIUM 3 ML (DUONEB) VIAL INH SCH ×6 (02:00→21:34)
[2016-08-31] MEDS: aCETylcysteine 20% (MUCOMYST) 30ML SOLN VIAL INH SCH ×3 (07:06→21:00)
[2016-08-31 08:00] VITALS: BP 140/72
[2016-08-31] MEDS: guaiFENesin (MUCINEX) 600 MG TAB PO SCH ×2 (09:46→20:39)
[2016-08-31] MEDS: HYDROcodone/APAP 5 MG/325 MG (LORTAB) TAB PO PRN ×2 (09:46→20:45)
[2016-08-31] MEDS: ALPRAZolam 0.25 MG (XANAX) TAB PO PRN (09:47)
[2016-08-31] MEDS: SENNA W/DOCUSATE (SENOKOT S) TABLET PO SCH ×2 (09:47→20:40)
[2016-08-31] MEDS: LACTULOSE SYRUP 10GM/15ML (ENULOSE) 30ML UDC PO SCH ×2 (09:47→20:40)
--- NOTE | 2016-08-31 11:37 | Progress Note-Hospitalist ---
Progress Note HPI/CC on Admission CC: Dyspnea HPI: This is a 75yoWM clinic patient of Dr Morton with known hx of smal cell lung cancer that presents as a direct admit from [facility] ER for higher level of care. He was treated for pneumonia 2 weeks ago and presented to the ER w/increased SOB and found to have additional infiltrate where the lung mass is and findings c/w AECOPD. Currently when I examined him he was tolerating the biPAP well and Dr Torrez has been consulted. Dr morton visited with him and obtained the DNR order which is reasonable considering his advanced COPD and lung cancer status. Progress Notes/Assess & Plan Date Seen 08/31/16 Admission Dx/Process Assessment: Respiratory failure requiring biPAP Severe COPD w/exacerbation along with small cell lung cancer managed by Dr Morton Smoker/Former smoker Diagonsis/Assessment & Plan Patient doing well and daughter at the bedside Bowels have completely evacuated and doing extremely well from that and Needs shelter at discharge Overall very weak and lung cancer is progressing No fever, vital signs stable, pleasant, improved, chronically ill, pale Regular rate and rhythm, clear to auscultation bilaterally but diminished breath sounds all de paz No edema Assessment: s/p Respiratory failure requiring biPAP now improved and off biPAP Severe COPD w/exacerbation along with small cell lung cancer managed by Dr Morton Smoker/Former smoker Severe constipation resolved Anemia of cancer Plan: IV abx Nebs Dr Morton and Dr Torrez consultations are appreciated Pain meds DNR poor prognosis needs Hospice [facility] tomorrow MADHAVI PALACIO DO August 31, 2016 11:37
[2016-08-31 15:20] VITALS: BP 121/62
[2016-08-31 23:40] VITALS: BP 125/74
[2016-09-01] MEDS: PIPERACILLIN SODIUM/TAZOBACTAM 4.5 GM in NS (IVPB) 100 ML IV SCH ×3 (01:08→18:17)
[2016-09-01] MEDS: aCETylcysteine 20% (MUCOMYST) 30ML SOLN VIAL INH SCH ×4 (02:18→21:00)
[2016-09-01] MEDS: RT-ALBUTEROL/IPRATROPIUM 3 ML (DUONEB) VIAL INH SCH ×6 (02:19→23:12)
[2016-09-01] MEDS: HYDROcodone/APAP 5 MG/325 MG (LORTAB) TAB PO PRN ×3 (06:23→18:23)
[2016-09-01 07:32] VITALS: BP 130/60
--- NOTE | 2016-09-01 09:24 | Pulmonary Progress Note ---
Exam Exam Vital Signs Date Time Temp Pulse Resp B/P (MAP) Pulse Ox O2 Delivery O2 Flow Rate FiO2 09/01/16 07:32 99.1 98 18 130/60 92 4.00 09/01/16 06:34 92 2.00 09/01/16 02:19 90 2.00 08/31/16 23:40 98.2 98 16 125/74 94 2.00 08/31/16 20:40 2.00 08/31/16 18:43 92 2.00 08/31/16 15:20 98.7 97 22 121/62 92 2.00 08/31/16 14:54 92 2.00 08/31/16 10:45 92 2.00 I & O 09/01/16 07:00 Intake Total 1340 ml Output Total 300 ml Balance 1040 ml General Appearance: No Apparent Distress, Chronically ill HEENT: PERRL/EOMI, Normal ENT Inspection, Pharynx Normal Neck: Full Range of Motion, Normal Inspection, Non Tender, Supple, Carotid Bruit Respiratory: Crackles (inspiratory), Wheezing (diffuse expiratory) Cardiovascular: Regular Rate, Rhythm, Normal Peripheral Pulses Capillary Refill: Less Than 3 Seconds Gastrointestinal: normal bowel sounds, non tender, soft Extremity: No Calf Tenderness, Swelling (2+ to ankles) Neurologic/Psychiatric: Alert, Oriented x3 Skin: Normal Color, Warm/Dry Lymphatic: No Adenopathy Assessment/Plan Assessment/Plan COPDAE - - CXR shows pna -continue Abx -SVNS, steroids Extensive small cell lung cancer -not responding to chemo chronic constipation I agree with hospice education/care. I also agree with DNR status. 232 Clinical Quality Measures DVT/VTE Risk/Contraindication: Risk Factor Score Per Nursin RFS Level Per Nursing on Admit: 2=Moderate FLOR POON DO September 01, 2016 09:24
[2016-09-01] MEDS: LACTULOSE SYRUP 10GM/15ML (ENULOSE) 30ML UDC PO SCH ×2 (10:34→20:44)
[2016-09-01] MEDS: guaiFENesin (MUCINEX) 600 MG TAB PO SCH ×2 (10:34→21:21)
[2016-09-01] MEDS: SENNA W/DOCUSATE (SENOKOT S) TABLET PO SCH ×2 (10:35→20:44)
--- NOTE | 2016-09-01 14:18 | Progress Note-Hospitalist ---
Standard Progress Note Progress Notes/Assess & Plan Date Seen 09/01/16 Diagnosis Assessment: Respiratory failure requiring biPAP Severe COPD w/exacerbation along with small cell lung cancer managed by Dr Murry Smoker/Former smoker Assess & Plan/Chief Complaint The patient is a 76-year-old white male known small cell carcinoma of the lung and who was admitted with an obstructive pneumonia. He reports that he is feeling better although still quite breathless. He has the sense that he needs to cough up phlegm but has not been able to produce this. He is aware of his situation. He has agreed to DO NOT RESUSCITATE status. The plans are for transfer to home tomorrow with hospice status. Physical exam: The patient is sitting in a chair at the bedside. He is tachypneic while speaking. Lungs show breath sounds to be quite distant but without wheezing or rhonchi. CV is regular. Impression: End-stage small cell carcinoma lung. 2.obstructive pneumonia. Plan: Discharge tomorrow on hospice status. AMARA URIAS MD September 01, 2016 14:18
[2016-09-01 15:26] VITALS: BP 122/70
--- NOTE | 2016-09-01 16:48 | Progress Note (SOAP) ---
Subjective Subjective/Events-last exam Patient is sitting up on side of bed because of breathlessness when lying supine ; States he will sign on to Hospice and be discharged tomorrow; Objective Exam Vital Signs Date Time Temp Pulse Resp B/P (MAP) Pulse Ox O2 Delivery O2 Flow Rate FiO2 09/01/16 15:32 92 2.00 09/01/16 11:00 2.00 09/01/16 07:32 99.1 98 18 130/60 92 4.00 09/01/16 06:34 92 2.00 09/01/16 02:19 90 2.00 08/31/16 23:40 98.2 98 16 125/74 94 2.00 08/31/16 20:40 2.00 08/31/16 18:43 92 2.00 I & O 09/01/16 07:00 Intake Total 1340 ml Output Total 300 ml Balance 1040 ml Capillary Refill : Less Than 3 Seconds General Appearance: Chronically ill, Mild Distress (when talking becomes more dyspneic) HEENT: PERRL/EOMI Neck: Full Range of Motion Respiratory: Decreased Breath Sounds, Wheezing Cardiovascular: Regular Rate, Rhythm Gastrointestinal: normal bowel sounds, non tender, soft Neurologic/Psychiatric: Alert, Oriented x3 Results Lab Laboratory Tests 09/01/16 13:02: Lab Scanned Report Transfusion Reaction Form Laboratory Tests 08/30/16 05:15 Assessment/Plan Assessment/Plan Assess & Plan/Chief Complaint 1. Pneumonia and Exacerbation of COPD--improved but still with shortness of air with minimal activity 2. Extensive disease small cell lung carcinoma --patient has decided to sign up with hospice 3. Acute on chronic constipation--constipation has resolved 4. Anemia of cancer and its treatment-hemoglobin is stable 5. Chronic pain-continue narcotic analgesics as well as scheduled use of stool softeners and laxatives. 6. 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 DO NOT RESUSCITATE this patient as per his request. 8. Multiple comorbidities including hypertension, hyperlipidemia, GERD, history of H. pylori infection, age-related macular degeneration, DJD and cervical spinal stenosis. Clinical Quality Measures DVT/VTE Risk/Contraindication: Risk Factor Score Per Nursin RFS Level Per Nursing on Admit: 2=Moderate CHRISTIANO BANSAL MD September 01, 2016 16:48
[2016-09-01 23:50] VITALS: BP 121/66
[2016-09-02] MEDS: PIPERACILLIN SODIUM/TAZOBACTAM 4.5 GM in NS (IVPB) 100 ML IV SCH ×2 (01:18→09:36)
[2016-09-02] MEDS: RT-ALBUTEROL/IPRATROPIUM 3 ML (DUONEB) VIAL INH SCH ×3 (02:00→11:27)
[2016-09-02] MEDS: aCETylcysteine 20% (MUCOMYST) 30ML SOLN VIAL INH SCH ×2 (02:37→07:53)
[2016-09-02] MEDS: HYDROcodone/APAP 5 MG/325 MG (LORTAB) TAB PO PRN ×2 (06:23→10:56)
[2016-09-02 08:22] VITALS: BP 122/74
--- NOTE | 2016-09-02 08:50 | Pulmonary Progress Note ---
Exam Exam Vital Signs Date Time Temp Pulse Resp B/P (MAP) Pulse Ox O2 Delivery O2 Flow Rate FiO2 09/02/16 08:22 97.2 106 20 122/74 92 4.00 09/02/16 07:49 90 2.00 09/01/16 23:50 99.0 108 22 121/66 91 4.00 09/01/16 23:13 92 2.00 09/01/16 20:05 92 2.00 09/01/16 15:32 92 2.00 09/01/16 15:26 99.1 96 20 122/70 93 4.00 09/01/16 11:00 2.00 I & O 09/02/16 07:00 Intake Total 1390 ml Output Total 825 ml Balance 565 ml General Appearance: Chronically ill, Mild Distress (when talking becomes more dyspneic) HEENT: PERRL/EOMI Neck: Full Range of Motion Respiratory: Decreased Breath Sounds, Wheezing Cardiovascular: Regular Rate, Rhythm Capillary Refill: Less Than 3 Seconds Gastrointestinal: normal bowel sounds, non tender, soft Extremity: No Calf Tenderness, Swelling (2+ to ankles) Neurologic/Psychiatric: Alert, Oriented x3 Skin: Normal Color, Warm/Dry Lymphatic: No Adenopathy Assessment/Plan Assessment/Plan COPDAE - - CXR shows pna -continue Abx -SVNS, steroids Extensive small cell lung cancer -not responding to chemo chronic constipation I agree with hospice education/care. I also agree with DNR status. Pt is planning on going home with hospice today 232 Clinical Quality Measures DVT/VTE Risk/Contraindication: Risk Factor Score Per Nursin RFS Level Per Nursing on Admit: 2=Moderate FLOR POON DO September 02, 2016 08:50
[2016-09-02] MEDS: SENNA W/DOCUSATE (SENOKOT S) TABLET PO SCH (09:36)
[2016-09-02] MEDS: guaiFENesin (MUCINEX) 600 MG TAB PO SCH (09:36)
[2016-09-02] MEDS: LACTULOSE SYRUP 10GM/15ML (ENULOSE) 30ML UDC PO SCH (09:36)
--- NOTE | 2016-09-02 09:56 | Progress Note-Hospitalist ---
Standard Progress Note Progress Notes/Assess & Plan Date Seen 09/02/16 Diagnosis Assessment: Respiratory failure requiring biPAP Severe COPD w/exacerbation along with small cell lung cancer managed by Dr Murry Smoker/Former smoker Assess & Plan/Chief Complaint The patient was sitting on his bedside with a perplexed look on his face. He is ready for discharge today and has signed on with hospice dom. He had thought his daughter would be here to pick him up by now. He has no questions or complaints. Physical exam: He is alert but not energetic. Lungs show distant breath sounds and a slight wheeze on the right. CV is regular. Ankles show no pedal edema. Impression: Left-sided pneumonia, obstructive. 2.end-stage small cell carcinoma of the lung Plan: Discharge home to the care of hospice AMARA Garza MD September 02, 2016 09:56
--- NOTE | 2016-09-02 11:03 | Discharge Instructions ---
Discharge Instructions Patient Instructions Goal/Follow Up Appt: Activated [facility] Comfort care to be the foremost goal Patient Instructions: Medications as detailed in the discharge sequence Dr. Villalba and hospice [facility] will manage outpatient needs Activity & Diet Discharge Diet: No Restrictions AMARA URIAS MD September 02, 2016 11:03
== END 2016-09-02 13:53 | disposition hospice, home (50) | DRG 189 ==
LOC: ICU 11:20 → 4TH 17:30
PROVIDERS: ADMIT Internal Medicine; ATTEND Internal Medicine
DX: J96.20 Acute and chronic respiratory failure, unspecified whether with hypoxia or hypercapnia (principal); J44.1 Chronic obstructive pulmonary disease with (acute) exacerbation; J44.0 Chronic obstructive pulmonary disease with (acute) lower respiratory infection; J18.9 Pneumonia, unspecified organism; C34.90 Malignant neoplasm of unspecified part of unspecified bronchus or lung; D63.0 Anemia in neoplastic disease; Z66 Do not resuscitate; K59.09 Other constipation; I10 Essential (primary) hypertension; E78.5 Hyperlipidemia, unspecified; K21.9 Gastro-esophageal reflux disease without esophagitis; H35.30 Unspecified macular degeneration; M48.02 Spinal stenosis, cervical region; R60.0 Localized edema; Z87.891 Personal history of nicotine dependence; Z92.21 Personal history of antineoplastic chemotherapy
CPT/HCPCS: 36415; 71020; 80053; 82805; 83605; 85025; 85027; 86850; 86900; 86901; 86920; 94640; 94660; 94664; 94760